=== PATIENT | female | born 1985 | race Caucasian/White ===

== ENCOUNTER 2021-03-23 13:59 | Emergency (ER) | payer OTHER ==
[~2021-03-23 13:59] MED LIST: COLACE 100MG C100 MG PO; FLOVENT 220.1 GM/INH INH; IBUPROFEN600 MG PO; IBUPROFEN800 MG PO; LORTAB 5-325 M1 EACH PO; MEDROL DOSEPAK 24 MG PO; PHENERGAN 25 MG25 M1 PO; PROAIR DIGIHAL90 MCG INH; TESSALON PERLE100 MG PO; ZANTAC150 MG PO
== END 2021-03-23 14:37 | disposition home or self-care (01) ==
LOC: ER1 13:59
DX: S86.912A Strain of unspecified muscle(s) and tendon(s) at lower leg level, left leg, initial encounter (principal); Z90.49 Acquired absence of other specified parts of digestive tract; X58.XXXA Exposure to other specified factors, initial encounter
CPT/HCPCS: 96372; 99283; J1885

== ENCOUNTER 2021-03-27 21:29 | Emergency (ER) | payer OTHER | END 2021-03-27 22:50 | disposition home or self-care (01) | LOC: ER1 21:29 | DX: M25.562 Pain in left knee (principal) | CPT/HCPCS: 99283 ==

== ENCOUNTER 2021-06-24 20:24 | Emergency (ER) | payer OTHER ==
[2021-06-24 21:29] LABS: HEMOGLOBIN 11.8 gm/dl (12.3-15.3); WHITE BLOOD COUNT 16.2 K/UL (4.5-11.0)
[2021-06-24 21:52] LABS: BUN/CREATININE RATIO 13 (0-10)
[2021-06-25] MEDS ORDERED: ZOFRAN4 MG PO (00:25)
[2021-06-25] MEDS ORDERED: AUGMENTIN 875-1 EACH PO (00:25)
[2021-06-25] MEDS ORDERED: BENTYL 20MG TAB20 MG PO (00:25)
== END 2021-06-25 00:50 | disposition home or self-care (01) ==
LOC: ER1 20:24
PROVIDERS: Physician Assistant Medical
DX: K57.32 Diverticulitis of large intestine without perforation or abscess without bleeding (principal); Z90.49 Acquired absence of other specified parts of digestive tract
CPT/HCPCS: 80053; 81001; 83605; 83690; 84703; 85025; 96374; 99284; J2405; Q9967

== ENCOUNTER → 2021-09-14 | Outpatient (CLI) | payer OTHER ==
[~2021-09-14] MED LIST changes: +AUGMENTIN 875-1 EACH PO; +BENTYL 20MG TAB20 MG PO; +ZOFRAN4 MG PO
== END ==
LOC: MAMO 10:50
DX: N63.0 Unspecified lump in unspecified breast (principal); Z80.3 Family history of malignant neoplasm of breast
CPT/HCPCS: 76642-LT; 76642-RT; 77066; G0279

== ENCOUNTER → 2021-11-01 | Outpatient (CLI) | payer OTHER ==
[~2021-11-01] MED LIST changes: +[UNRECOGNIZED DRUG - OTHER]
== END ==
LOC: HEART 5 12:37
DX: R00.2 Palpitations (principal); R07.9 Chest pain, unspecified

== ENCOUNTER → 2021-12-10 | Outpatient (CLI) | payer OTHER | LOC: HEART 5 12-04 13:00 | DX: R07.9 Chest pain, unspecified (principal) ==

== ENCOUNTER 2022-04-12 06:52 | Emergency (ER) | payer OTHER ==
[2022-04-12] MEDS ORDERED: BACTRIM DS TAB1 EACH PO (07:59)
[2022-04-12] MEDS ORDERED: AMOX TR-K CLV1 EAC4 PO (07:59)
== END 2022-04-12 08:25 | disposition home or self-care (01) ==
LOC: ER1 06:52
DX: L02.211 Cutaneous abscess of abdominal wall (principal); J45.909 Unspecified asthma, uncomplicated
CPT/HCPCS: 10060; 99283